=== PATIENT | female | born 1955 | race Caucasian/White ===

== ENCOUNTER 2021-02-22 21:50 | Inpatient (IN) ==
[2021-02-23] MEDS: *HR* Enoxaparin 40 MG/0.4 ML SYRINGE SQ SCH (05:41)
[2021-02-23 07:27] LABS: Basophils # 0.1 K/mcL (0.0-0.2); Basophils % 0.4 %; Eosinophils # 0.3 K/mcL (0.0-0.6); Eosinophils % 2.7 %; Hematocrit 31.3 % (35.3-44.9); Hemoglobin 10.1 g/dL (11.5-15.4); Immature Granulocytes % 0.5 % (0-4); Lymphocytes # 3.7 K/mcL (0.6-4.6); Lymphocytes % 29.8 %; Mean Corpuscular HGB Conc 32.3 g/dL (31.6-35.5); Mean Corpuscular Hemoglobin 26.3 pg (28.0-33.3); Mean Corpuscular Volume 81.5 fL (83.0-100.0); Mean Platelet Volume 9.8 fL (9.4-12.4); Monocytes # 1.1 K/mcL (0.0-1.3); Monocytes % 9.3 %; Platelet Count 266 K/mcL (140-400); Red Blood Count 3.84 M/mcL (3.82-4.97); Red Cell Distribution Width 14.9 % (11.5-14.5); Segmented Neutrophils % 57.3 %; White Blood Count 12.3 K/mcL (4.3-11.1)
[2021-02-23 08:06] LABS: Neutrophils # 7.1 K/mcL (1.6-8.9)
[2021-02-23 08:15] LABS: BUN/Creatinine Ratio 16 (6-26); Blood Urea Nitrogen 10 mg/dL (8-23); Calcium 8.7 mg/dL (8.6-10.3); Carbon Dioxide 26 mEq/L (23-29); Chloride 103 mEq/L (98-107); Glucose 120 mg/dL (70-105); Osmolality,Calculated 290 (280-300); Potassium 3.5 mEq/L (3.5-5.1); Sodium 140 mEq/L (136-145); eGFR For African Americans > 60 (> 60); eGFR For Non-African Americans > 60 (> 60)
[2021-02-23] MEDS: Ascorbic Acid 500 MG TABLET PO SCH ×2 (10:58→20:40)
[2021-02-23] MEDS: FLUoxetine 20 MG CAPSULE PO SCH (10:58)
[2021-02-23] MEDS: Vitamin E 200 UNIT (90MG) CAPSULE PO SCH (10:59)
[2021-02-23] MEDS: BuPROPion XL (24 HR) 150 MG TABLET PO SCH (10:59)
[2021-02-23] MEDS: lisinopriL 10 MG TABLET PO SCH (10:59)
[2021-02-23] MEDS: Sennosides/Docusate Sodium TABLET PO PRN (10:59)
[2021-02-23] MEDS: Famotidine 20 MG TABLET PO SCH ×2 (10:59→20:40)
[2021-02-24] MEDS: *HR* Enoxaparin 40 MG/0.4 ML SYRINGE SQ SCH (06:27)
[2021-02-24] MEDS: lisinopriL 10 MG TABLET PO SCH (08:58)
[2021-02-24] MEDS: Vitamin E 200 UNIT (90MG) CAPSULE PO SCH (08:58)
[2021-02-24] MEDS: Ascorbic Acid 500 MG TABLET PO SCH ×2 (08:59→22:27)
[2021-02-24] MEDS: FLUoxetine 20 MG CAPSULE PO SCH (08:59)
[2021-02-24] MEDS: BuPROPion XL (24 HR) 150 MG TABLET PO SCH (08:59)
[2021-02-24] MEDS: Famotidine 20 MG TABLET PO SCH (09:05)
[2021-02-25] MEDS: *HR* Enoxaparin 40 MG/0.4 ML SYRINGE SQ SCH (06:24)
[2021-02-25] MEDS: BuPROPion XL (24 HR) 150 MG TABLET PO SCH (09:58)
[2021-02-25] MEDS: FLUoxetine 20 MG CAPSULE PO SCH (09:58)
[2021-02-25] MEDS: Ascorbic Acid 500 MG TABLET PO SCH ×2 (09:58→20:28)
[2021-02-25] MEDS: Vitamin E 200 UNIT (90MG) CAPSULE PO SCH (09:59)
[2021-02-25] MEDS: lisinopriL 10 MG TABLET PO SCH (09:59)
[2021-02-25] MEDS: Sennosides/Docusate Sodium TABLET PO PRN (20:28)
[2021-02-26] MEDS: *HR* Enoxaparin 40 MG/0.4 ML SYRINGE SQ SCH (06:28)
[2021-02-26] MEDS: FLUoxetine 20 MG CAPSULE PO SCH (09:34)
[2021-02-26] MEDS: Vitamin E 200 UNIT (90MG) CAPSULE PO SCH (09:34)
[2021-02-26] MEDS: lisinopriL 10 MG TABLET PO SCH (09:34)
[2021-02-26] MEDS: BuPROPion XL (24 HR) 150 MG TABLET PO SCH (09:34)
[2021-02-26] MEDS: Ascorbic Acid 500 MG TABLET PO SCH ×2 (09:35→22:30)
[2021-02-26] MEDS: *HR* OxyCODONE Immed Rel 5 MG TABLET PO PRN ×2 (14:42→22:30)
[2021-02-27] MEDS: *HR* Enoxaparin 40 MG/0.4 ML SYRINGE SQ SCH (06:14)
[2021-02-27] MEDS: BuPROPion XL (24 HR) 150 MG TABLET PO SCH (09:31)
[2021-02-27] MEDS: FLUoxetine 20 MG CAPSULE PO SCH (09:32)
[2021-02-27] MEDS: Ascorbic Acid 500 MG TABLET PO SCH ×2 (09:32→20:18)
[2021-02-27] MEDS: lisinopriL 10 MG TABLET PO SCH (09:32)
[2021-02-27] MEDS: Vitamin E 200 UNIT (90MG) CAPSULE PO SCH (09:32)
[2021-02-27] MEDS: *HR* OxyCODONE Immed Rel 5 MG TABLET PO PRN (20:18)
[2021-02-28] MEDS: *HR* Enoxaparin 40 MG/0.4 ML SYRINGE SQ SCH (05:15)
[2021-02-28 07:29] LABS: Hematocrit 28.5 % (35.3-44.9); Mean Corpuscular HGB Conc 31.6 g/dL (31.6-35.5); Mean Corpuscular Hemoglobin 25.4 pg (28.0-33.3); Mean Corpuscular Volume 80.5 fL (83.0-100.0); Mean Platelet Volume 9.3 fL (9.4-12.4); Platelet Count 348 K/mcL (140-400); Red Blood Count 3.54 M/mcL (3.82-4.97); Red Cell Distribution Width 14.2 % (11.5-14.5); White Blood Count 6.8 K/mcL (4.3-11.1)
[2021-02-28 07:45] LABS: BUN/Creatinine Ratio 10 (6-26); Blood Urea Nitrogen 6 mg/dL (8-23); Calcium 8.1 mg/dL (8.6-10.3); Carbon Dioxide 26 mEq/L (23-29); Chloride 105 mEq/L (98-107); Glucose 117 mg/dL (70-105); Osmolality,Calculated 291 (280-300); Potassium 3.5 mEq/L (3.5-5.1); Sodium 141 mEq/L (136-145); eGFR For African Americans > 60 (> 60); eGFR For Non-African Americans > 60 (> 60)
[2021-02-28] MEDS: Ascorbic Acid 500 MG TABLET PO SCH ×2 (09:35→21:14)
[2021-02-28] MEDS: lisinopriL 10 MG TABLET PO SCH (09:35)
[2021-02-28] MEDS: BuPROPion XL (24 HR) 150 MG TABLET PO SCH (09:35)
[2021-02-28] MEDS: FLUoxetine 20 MG CAPSULE PO SCH (09:35)
[2021-02-28] MEDS: Vitamin E 200 UNIT (90MG) CAPSULE PO SCH (09:35)
[2021-02-28] MEDS: *HR* OxyCODONE Immed Rel 5 MG TABLET PO PRN (21:14)
[2021-03-01] MEDS: *HR* Enoxaparin 40 MG/0.4 ML SYRINGE SQ SCH (05:34)
[2021-03-01] MEDS: lisinopriL 10 MG TABLET PO SCH (08:54)
[2021-03-01] MEDS: Vitamin E 200 UNIT (90MG) CAPSULE PO SCH (08:54)
[2021-03-01] MEDS: BuPROPion XL (24 HR) 150 MG TABLET PO SCH (08:54)
[2021-03-01] MEDS: Ascorbic Acid 500 MG TABLET PO SCH ×2 (08:55→20:56)
[2021-03-01] MEDS: FLUoxetine 20 MG CAPSULE PO SCH (08:55)
[2021-03-01] MEDS ORDERED: Acetaminophen 325 MG TABLET PO PRN (12:10)
[2021-03-01] MEDS: *HR* OxyCODONE Immed Rel 5 MG TABLET PO PRN ×2 (14:45→20:56)
[2021-03-02] MEDS: *HR* Enoxaparin 40 MG/0.4 ML SYRINGE SQ SCH (05:48)
[2021-03-02] MEDS: *HR* OxyCODONE Immed Rel 5 MG TABLET PO PRN ×3 (05:48→21:00)
[2021-03-02] MEDS: Vitamin E 200 UNIT (90MG) CAPSULE PO SCH (08:46)
[2021-03-02] MEDS: lisinopriL 10 MG TABLET PO SCH (08:46)
[2021-03-02] MEDS: BuPROPion XL (24 HR) 150 MG TABLET PO SCH (08:46)
[2021-03-02] MEDS: FLUoxetine 20 MG CAPSULE PO SCH (08:47)
[2021-03-02] MEDS: Ascorbic Acid 500 MG TABLET PO SCH ×3 (08:47→21:05)
[2021-03-03] MEDS: *HR* OxyCODONE Immed Rel 5 MG TABLET PO PRN ×2 (03:19→14:22)
[2021-03-03] MEDS: *HR* Enoxaparin 40 MG/0.4 ML SYRINGE SQ SCH (06:38)
[2021-03-03 09:08] LABS: Basophils % 0.5 %; Eosinophils # 0.5 K/mcL (0.0-0.6); Eosinophils % 6.8 %; Hematocrit 29.6 % (35.3-44.9); Hemoglobin 9.3 g/dL (11.5-15.4); Lymphocytes # 2.5 K/mcL (0.6-4.6); Mean Corpuscular HGB Conc 31.4 g/dL (31.6-35.5); Mean Corpuscular Hemoglobin 25.8 pg (28.0-33.3); Mean Platelet Volume 9.2 fL (9.4-12.4); Monocytes # 0.7 K/mcL (0.0-1.3); Monocytes % 9.6 %; Neutrophils # 3.7 K/mcL (1.6-8.9); Platelet Count 466 K/mcL (140-400); Red Blood Count 3.61 M/mcL (3.82-4.97); Red Cell Distribution Width 14.6 % (11.5-14.5); Segmented Neutrophils % 49.1 %; White Blood Count 7.6 K/mcL (4.3-11.1)
[2021-03-03] MEDS: lisinopriL 10 MG TABLET PO SCH (09:15)
[2021-03-03] MEDS: Vitamin E 200 UNIT (90MG) CAPSULE PO SCH (09:16)
[2021-03-03] MEDS: BuPROPion XL (24 HR) 150 MG TABLET PO SCH (09:16)
[2021-03-03] MEDS: FLUoxetine 20 MG CAPSULE PO SCH (09:16)
[2021-03-03] MEDS: Ascorbic Acid 500 MG TABLET PO SCH ×2 (09:17→20:35)
[2021-03-03 09:36] LABS: BUN/Creatinine Ratio 12 (6-26); Blood Urea Nitrogen 8 mg/dL (8-23); Calcium 8.3 mg/dL (8.6-10.3); Carbon Dioxide 26 mEq/L (23-29); Chloride 105 mEq/L (98-107); Glucose 96 mg/dL (70-105); Osmolality,Calculated 288 (280-300); Potassium 3.5 mEq/L (3.5-5.1); Sodium 140 mEq/L (136-145); eGFR For African Americans > 60 (> 60); eGFR For Non-African Americans > 60 (> 60)
[2021-03-04] MEDS: *HR* OxyCODONE Immed Rel 5 MG TABLET PO PRN ×2 (00:18→06:03)
[2021-03-04] MEDS: *HR* Enoxaparin 40 MG/0.4 ML SYRINGE SQ SCH (05:58)
[2021-03-04] MEDS: BuPROPion XL (24 HR) 150 MG TABLET PO SCH (09:32)
[2021-03-04] MEDS: Vitamin E 200 UNIT (90MG) CAPSULE PO SCH (09:32)
[2021-03-04] MEDS: FLUoxetine 20 MG CAPSULE PO SCH (09:32)
[2021-03-04] MEDS: lisinopriL 10 MG TABLET PO SCH (09:32)
[2021-03-04 09:41] VITALS: BP 141/67; PULSE 80; RESP 18; TEMP 98.8; O2SAT 95
== END 2021-03-04 12:15 | disposition home health service (06) | DRG 561 ==
LOC: INPPIK 22:17
PROVIDERS: ADMIT Family Medicine; ATTEND Family Medicine